=== PATIENT | female | born 1940 | race Caucasian/White ===

== ENCOUNTER 2025-07-12 06:58 | Inpatient (IN) | payer MEDICARE, BC ==
[~2025-07-12] VITALS: Ht 157.5 cm; Wt 93.2 kg
[2025-07-12] VITALS (20 sets, daily range): BP systolic 109–170; BP diastolic 35–79; PULSE 55–95; RESP 15–30; O2SAT 69–99
--- NOTE | 2025-07-12 07:26 | Physician Documentation ---
History of Present Illness ~ Chief Complaint: See Chief Complaint Stated Complaint: C3 Time Seen by MD: 07:13 Source: patient, EMS, EMS notes reviewed Mode of Arrival: EMS Exam Limitations: clinical condition HPI Chief Complaint: Shortness a breath, cardiac arrest Caveat: Unresponsive Independent Historians: Paramedics History of Present Illness: Patient is an 85-year-old woman with a history of atrial fibrillation woke up feeling short of breath and she activated her medical alert necklace. Paramedics found the patient cyanotic with difficulty breathing and a heart rate in the 20s.. They found her to be pulseless and MPA. They introduced an eye gel, a left tibia IO and gave her two rounds of epinephr ine and initiated CPR. After the two rounds of epi patient's heart rate improved and a pulse was obtained. Per paramedics family stated that she was DNR but they could not find the paperwork. Review of systems: All systems were reviewed and are negative except for what is indicated in the history of present illness. Past Medical History: Atrial fibrillation Past Surgical History: Known Social History: Lives at home with family, otherwise unknown Medications: Reviewed as documented Nursing Notes Allergies: Reviewed as documented in Nursing Notes Medication Reconciliation Allergies: Coded Allergies: No Allergy Information Available (Unverified , 07/12/25) Scheduled Amlodipine* (Norvasc*), 2 TAB PO DAILY, (Reported) Arformoterol Tartrate (Brovana), 1 VIAL NEB Q12H, (Reported) Aspirin (Aspirin), 1 TAB PO DAILY, (Reported) Budesonide Neb* (Pulmicort Neb*), 1 VIAL NEB Q12H, (Reported) Etodolac (Etodolac), 1 TAB PO Q12H, (Reported) Furosemide (Lasix), 1 TAB PO DAILY, (Reported) Levothyroxine Sodium (Levothyroxine), 1 TAB PO DAILY, (Reported) Metoprolol Succinate (Metoprolol Succinate), 1 TAB PO DAILY, (Reported) Potassium Chloride (Klor-Con), 1 PKT PO DAILY, (Reported) Ramipril* (Altace*), 2 CAP PO DAILY, (Reported) Simvastatin (Zocor), 1 TAB PO DAILY, (Reported) Scheduled PRN Alprazolam (Xanax), 1 TAB PO HS PRN for sleep, (Reported) Physical Exam Vital Signs: Temperature: 97.5, Source: Temporal, Heart Rate: 95, Respiratory Rate: 23, BP: 149/66, Pulse Oximetry: 97, Weight: 91.100 Procedures Intubation Intubation Time: 707 Intubation Method: orotracheal Endotracheal Tube Size: 7.5 Medications: other (Rocuronium 100 mg) ETT Confirmation: Ascultation, CO2 Detector, Direct Visualization, Condensation in ETT Breath Sounds After Intubation: equal Intubation Complications: no complications Post Intubation Xray: Yes Progress Results/Orders Results/Orders Orders - CORRIE HODGE MD Electrocardiogram (07/12/25 07:16) Chest,Single View (07/12/25 07:16) Saline Lock (07/12/25 07:16) Monitor (07/12/25 07:16) Oxygen (07/12/25 07:16) Propofol 1000mg/100ml Bottle (Diprivan I (07/12/25 07:20) Triglycerides (07/13/25 03:00) Triglycerides (07/20/25 03:00) Triglycerides (07/27/25 03:00) Triglycerides (08/03/25 03:00) Triglycerides (08/10/25 03:00) Ventilator Settings (07/12/25 07:21) Cult Sputum + Gram Stain (07/12/25 07:21) Abg (Arterial Blood Gas) (07/12/25 07:21) Ct Head (07/12/25 07:26) Culture Blood (07/12/25 07:36) Completed Orders - CORRIE HODGE MD Cbc/Diff (07/12/25 07:16) MG (07/12/25 07:16) Electrocardiogram (07/12/25 07:16) PBNP (07/12/25 07:16) Chest,Single View (07/12/25 07:16) Hs Troponin I W Calculations (07/12/25 07:16) Hs Troponin I W Calculations (07/12/25 09:16) Hs Troponin I W Calculations (07/12/25 10:16) CMP (07/12/25 07:16) Ct Head (07/12/25 07:26) Procalcitonin (07/12/25 07:36) Lacticsepsis (07/12/25 07:36) Phenylephrine 500 Mcg/5ml Inj. (Biorphen (07/12/25 07:39) Rocuronium Inj. (Zemuron Inj) (07/12/25 07:08) Sodium Bicarbonate 1meq/Ml Syr (Sodium B (07/12/25 07:35) Normal Saline 1000ml (0.9% Sodium Chlori (07/12/25 07:30) Ua W/Microscopic, Cult If Ind (07/12/25 08:50) Medications Received in ER Medications (Trade) Dose Ordered Sig/José Route PRN Reason Start Time Stop Time Status Last Admin Dose Admin Propofol 100 ml @ ud STK-MED ONCE IV 07/12/25 07:00 07/13/25 02:59 07/12/25 07:55 5 MLS/HR Propofol 100 ml @ 2.733 mls/ hr [id number] IV 07/12/25 07:20 07/12/25 09:27 2.733 MLS/HR (Zemuron inj) 100 mg ONCE ONCE IV 07/12/25 07:08 07/12/25 07:43 DC 07/12/25 07:55 100 MG (sodium bicarbonate 8.4% (1meq/ml) syringe) 50 ml ONCE ONCE IV 07/12/25 07:35 07/12/25 07:43 DC 07/12/25 07:55 50 ML Sodium Chloride 1,000 ml @ 2,000 mls/hr ONCE ONCE IV 07/12/25 07:30 07/12/25 07:59 DC 07/12/25 07:55 2,000 MLS/HR Vital Signs 07/12/25 07/12/25 07/12/25 07/12/25 07:00 07:00 07:05 07:10 Temp 97.5 Pulse 107 78 110 Resp 18 18 16 B/P (MAP) 149/66 149/66 (93) 130/88 (102) Pulse Ox 100 100 99 97 O2 Delivery Ambu Bag O2 Flow Rate 10.0 10.0 FiO2 N/A 07/12/25 07/12/25 07/12/25 07/12/25 07:14 07:15 07:20 07:25 Pulse 95 97 97 97 Resp 23 16 16 16 B/P (MAP) 119/101 (107) 134/118 (123) 134/118 (123) Pulse Ox 97 97 95 95 O2 Flow Rate 10.0 FiO2 80 80 80 07/12/25 07/12/25 07/12/25 07/12/25 07:30 07:35 07:40 07:45 Pulse 97 97 91 92 Resp 18 16 20 19 B/P (MAP) 64/39 (47) 61/39 (46) 69/34 (46) 90/46 (61) Pulse Ox 93 96 94 95 FiO2 80 80 80 80 07/12/25 07/12/25 07/12/25 07/12/25 07:50 07:55 07:55 08:00 Pulse 85 87 85 Resp 20 20 16 B/P (MAP) 87/46 (60) 94/40 (58) 130/88 99/45 (63) Pulse Ox 96 97 98 FiO2 80 80 80 07/12/25 07/12/25 08:05 08:10 Pulse 108 80 Resp 20 B/P (MAP) 102/39 (60) 102/42 (62) Pulse Ox 100 100 FiO2 80 80 Laboratory Tests Test 07/12/25 07:06 07/12/25 07:27 White Blood Count 16.1 H Red Blood Count 4.91 Hemoglobin 15.2 Hematocrit 46.5 H Mean Corpuscular Volume 94.8 Mean Corpuscular Hemoglobin 30.9 Mean Corpuscular Hemoglobin Concent 32.6 L Red Cell Distribution Width 14.4 Platelet Count 306 Mean Platelet Volume 9.5 Neutrophils (%) (Auto) 53.8 Lymphocytes (%) (Auto) 38.1 Monocytes (%) (Auto) 6.1 Eosinophils (%) (Auto) 1.5 Basophils (%) (Auto) 0.5 Neutrophils # (Auto) 8.7 H Lymphocytes # (Auto) 6.1 H Monocytes # (Auto) 1.0 H Eosinophils # (Auto) 0.2 Basophils # (Auto) 0.1 CBC Comment Sodium Level 147 H Potassium Level 4.4 Chloride Level 109 H Carbon Dioxide Level 22.2 L Anion Gap 16 Blood Urea Nitrogen 28 H Creatinine 1.54 H Estimated GFR/1.73 m2 32 BUN/Creatinine Ratio 18.2 Glucose Level 285 H Lactic Acid Level 8.7 *H Calcium Level 9.5 Magnesium Level 2.6 H Total Bilirubin 0.8 Aspartate Amino Transf (AST/SGOT) 80 H Alanine Aminotransferase (ALT/SGPT) 77 Alkaline Phosphatase 117 H Troponin I High Sensitivity 141 *H Pro-B-Type Natriuretic Peptide 3690 H Total Protein 6.6 Albumin 2.6 L Globulin 4.0 Albumin/Globulin Ratio 0.7 L Procalcitonin < 0.05 Chemistry Comments Blood Gas Specimen Type Arterial Blood Gas Puncture Site Rr O2 Saturation 94.1 Arterial Blood pH (Temp corrected) 7.218 *L Arterial Blood pCO2 (Temp correct) 42.9 Arterial Blood pO2 (Temp corrected) 82.2 L Arterial Blood PO2/FiO2 Ratio 0.99 Arterial Blood HCO3 17.0 L Arterial Blood Base Excess -10.2 L Arterial Blood Oxyhemoglobin 94.0 Arterial Blood Carboxyhemoglobin 0.0 L Arterial Blood Methemoglobin 0.1 Arterial Blood Deoxyhemoglobin 5.9 H Arjun Test Na Blood Gas Hemoglobin 15.5 Blood Gas Temperature 37.5 Blood Gas Set Respiration Rate 16 Blood Gas Modality Vent - prvc FiO2 80.0 Blood Gas Tidal Volume 400 Blood Gas PEEP 5 Blood Gas Critical Value Called To dr hodge Microbiology Date/Time Source Procedure Growth Status 07/12/25 08:18 Blood Hand Left Blood Culture - Preliminary NEGATIVE (LESS THAN 24 HOURS) Resulted Medical Decision Making Findings Differential diagnosis includes but is not limited to: Acute coronary syndrome, ventricular fibrillation, ventricular tachycardia, ischemic stroke, hemorrhagic stroke, electrolyte abnormalities, sepsis, congestive heart failure, pulmonary embolus EKG independent interpretation: Performed at 7:35 a.m.. Sinus rhythm. Heart rate 92, left axis deviation, left bundle-branch block Chest x-ray, single view, indication: Post intubation Independent interpretation: ETT above the gagandeep, mild cardiomegaly, infiltrates in both lungs left greater than right. NG tube present Head CT without IV contrast, indication: Unresponsive Impression: 1. Atrophy with periventricular leukoencephalopathy. 2. No acute intracranial pathology Laboratory data independent interpretation: CBC: Leukocytosis of 16.1 otherwise unremarkable CMP: Sodium elevated at 147, no anion gap, anion gap 16, bicarb mildly low at 22.2, BUN and creatinine elevated at 28 and 1.54, serum glucose elevated at 285, LFTs unremarkable, magnesium elevated at 2.6 Pro BNP: 3690 Lactic acid: 8.7 Procalcitonin normal,<0.05 1st troponin: 141 2nd troponin: 151 Urinalysis: RBC 3-10, WBC 5-10, nitrite negative, few squamous cells, no bacteria ABG: PH 7.225, pCO2 42, PO2 79.5, bicarb 17 this is on an FiO2 of 80% Emergency department course/medical decision-making: Patient is an 85-year-old woman who comes in after having woken up with shortness a breath and then was found to be in cardiac arrest with PDA. ROS was obtained in the field prior to arrival. Patient's airway was stabilized by removing the eye gel in intubating the patient with a glide scope using a 7.5 ETT. Patient was never hypoxic. Patient was mildly hypertensive on arrival. Patient is unresponsive. Pupils pupils are reactive. NG tube placed. Bright catheter placed. We will maintain hypothermia. Patient was placed on propofol drip for sedation. Are the patient became hypotensive. Blood cultures, lactic acid and procalcitonin added. Patient given 2 L of normal saline IV bolus. Patient is also given phenylephrine 50 mcg IV push. Patient's blood pressure has improved. Do not suspect sepsis. Patient's lactic acid is likely elevated secondary to her cardiac arrest. Patient's procalcitonin is normal. The patient does have leukocytosis. Pneumonia is a possibility however I suspect this is congestive heart failure on the chest x-ray and not pneumonia. Patient isn't given antibiotics. Consultation/communications: 8:00 a.m.: Case discussed with our clutch assembler Dr. Stack. He will evaluate the patient for admission. Departure Time of Disposition: 07:24 Disposition: 09 ADMITTED INPATIENT Admitted to Inpatient Unit: to clutch assembler Admission Level of Care: Critcal Care Impression: Primary Impression: Cardiac arrest Education Educated: Family Educated regarding: diagnosis, treatment Critical Care Note Total Time (mins): 60 Critical Care Note Critical conditions addressed for impending deterioration include: airway/respiratory, cardiovascular, PMO MANAGER Associated risk factors involving deterioration include: hypertension, hypotension, dysrythmia, metabolic changes, dehydration,acidosis, The very real possibility of a deterioration of this patient's condition required the highest level of my preparedness for sudden, emergent intervention. I provided critical care services, which included medication orders, frequent reevaluations of the patient's condition and response to treatment, ordering and reviewing test results, and discussing the case with necessary consultants. Critical care time was exclusive of necessary procedure time. The critical care time associated with the care of the patient was 60 minutes. Signature Scribe Signature: No scribe Attestation: No scribe AYESHA,CORRIE R MD Jul 12, 2025 07:26
[2025-07-12 07:27] LABS: MEAN PLATELET VOLUME 9.5 FL (7.4-10.4); RED CELL DISTRIBUTION WIDTH 14.4 % (11.5-14.5)
[2025-07-12 07:31] LABS: ABG BASE EXCESS -10.2 mmol/L (-2.0-3.0); ABG HCO3 17.0 mmol/L (21.0-28.0); ABG OXYGEN SATURATION 94.1 % (94.0-98.0); ABG PCO2 (T) 42.9 mmHg (32.0-45.0); ABG PH (T) 7.218 (7.350-7.450); ABG PO2 (T) 82.2 mmHg (83.0-108.0); FCOHb 0.0 % (0.5-1.5); FHHb 5.9 % (0.0-5.0); FIO2 80.0 mmHg/%; FMetHb 0.1 % (0.0-1.5); FO2Hb 94.0 % (94.0-98.0); MODE VENT - prvc; PATIENT TEMPERATURE 37.5; PEEP 5 cm H2O; RESPIRATORY RATE 16 b/min; TIDAL VOLUME 400 mL; TOTAL HEMOGLOBIN 15.5 G/dl (12.0-16.0)
[2025-07-12 07:35] LABS: CREATININE 1.54 MG/DL (0.40-0.90); TOTAL CARBON DIOXIDE 22.2 MMOL/L (24-32); eCRCL 21 ML/MIN; eGFR 32 ML/MIN
--- NOTE | 2025-07-12 07:38 | ELECTROCARDIOGRAPH REPORT ---
[facility] Test Date: 2025-07-12 Test Time: 07:35:08 Pat Name: BEHZAD MARSHALL Department: [facility]ER Patient ID: [id number] Room: Gender: F Crop Puller: : 1940 Requested By: CORRIE HODGE Order Number: [id number] Reading MD: Dr. Josh Alonzo Measurements Intervals [place] Rate: 92 P: -14 DC: 155 QRS: -55 QRSD: 152 T: 121 QT: 459 QTc: 568 Interpretive Statements Atrial-paced complexes Left bundle branch block Electronically Signed On 07-12-2025 8:22:[address] Josh Alonzo Please click the below link to view image of tracing.
[2025-07-12 07:42] LABS: PRO BRAIN NATRIURETIC PEPTIDE 3690 PG/ML (0-450)
--- NOTE | 2025-07-12 07:44 | RADIOLOGY REPORT ---
CHEST RADIOGRAPH Indication: CP Technique: Single frontal view of the chest was obtained. Comparison: None FINDINGS: Lines and Tubes: The endotracheal tube terminates 2.3 cm above the gagandeep. The tip of the enteric tube terminates at the level of the distal esophagus. Lungs: Diffuse bilateral interstitial and alveolar opacities. Pleura: No effusion. No pneumothorax. Cardiomediastinal contours: Cardiomegaly. Bones: No acute osseous abnormality. IMPRESSION: 1. The tip of the enteric tube terminates at the level of the distal esophagus. Recommend advancement. 2. Endotracheal tube terminates 2.3 cm above the gagandeep. 3. Diffuse bilateral interstitial and alveolar opacities which may reflect pneumonia. 4. Cardiomegaly.
[2025-07-12] MEDS: rocuronium 10mg/ml inj IV ONE (07:55)
[2025-07-12] MEDS: normal saline 1000ml 1,000 ML IV ONE (07:55)
[2025-07-12] MEDS: propofol 1000mg/100ml bottle 100 ML IV ONE (07:55)
[2025-07-12] MEDS: sodium bicarbonate (8.4%) 1 mEq/ml syringe IV ONE (07:55)
[2025-07-12] MEDS ORDERED: rocuronium 10mg/ml inj IV ONE (08:00)
[2025-07-12] MEDS ORDERED: sodium bicarbonate (8.4%) 1 mEq/ml syringe ONE (08:00)
[2025-07-12] MEDS ORDERED: ASPI-1265 PO (08:50)
[2025-07-12] MEDS ORDERED: ondansetron/PF 4mg/2ml inj IV PRN (08:50)
[2025-07-12] MEDS ORDERED: morphine 4 MG/ML inj SYRINge IV PRN (08:50)
[2025-07-12] MEDS ORDERED: magnesium hydroxide 30ml (MOM) UD suspension PO PRN (08:50)
[2025-07-12] MEDS ORDERED: ETOD-189 PO (08:50)
[2025-07-12] MEDS ORDERED: ALPR-624 PO (08:50)
[2025-07-12] MEDS ORDERED: RAMI5CAP71 PO (08:50)
[2025-07-12] MEDS ORDERED: METO-395 PO (08:56)
[2025-07-12] MEDS ORDERED: AMLO2.5T2 PO (08:56)
[2025-07-12] MEDS ORDERED: LEVO75CA6 PO (08:56)
[2025-07-12] MEDS ORDERED: FURO-149 PO (08:56)
[2025-07-12] MEDS ORDERED: POTA20PA40 PO (08:56)
[2025-07-12] MEDS ORDERED: SIMV-341 PO (08:56)
[2025-07-12] MEDS ORDERED: BUDE0.5A11 NEB (09:04)
[2025-07-12] MEDS ORDERED: ARFO15VI NEB (09:04)
[2025-07-12] MEDS: LidoCAINE 2% Topical Jelly 11mL syringe (UROJET) TOP ONE (09:15)
--- NOTE | 2025-07-12 09:20 | RADIOLOGY REPORT ---
CT brain without contrast CLINICAL INDICATION: aloc FINDINGS: The study was performed in a multidetector scanner. This study performed taking axial images from the skull base up to the vertex. Both brain and bone windows are photographed. Dose lowering techniques have been used including automated exposure control and adjustment of mA and/or KV according to patient size. Cortical sulcal markings are prominent. No intraparenchymal hemorrhage or edema. Faint low-density changes in the periventricular white matter. No hydrocephalus or midline shift. IMPRESSION: 1. Atrophy with periventricular leukoencephalopathy. 2. No acute intracranial pathology Computed Tomographic Radiation Dosimetry Report: Total CTDI vol = 65 mGy Total DLP = 1202 mGy-cm All CT scans at this medical facility are performed using dose modulation techniques as appropriate to a performed exam including the following: Automated exposure control was utilized; adjustment of the MA and/or KvP according to patient size; and use of iterative reconstruction technique.
[2025-07-12 09:27] LABS: LEUKOCYTE ESTERASE ,URINE NEGATIVE (Neg); NITRITES, URINE NEGATIVE (Neg); OCCULT BLOOD,URINE NEGATIVE (Neg)
[2025-07-12] MEDS: propofol 1000mg/100ml bottle 100 ML IV SCH (09:27)
[2025-07-12 09:32] LABS: UA COLLECTION TYPE FOLEY CATH
[2025-07-12] MEDS: ringers solution, lacted 1,000 ML IV ONE ×2 (09:32→09:33)
[2025-07-12 09:44] LABS: SQUAMOUS EPITHELIAL CELL,UR FEW /LPF (FEW)
[2025-07-12 09:45] LABS: AMORPHOUS URATES 2+; FINE GRANULAR CAST 0-3 /LPF (NEGATIVE)
[2025-07-12] MEDS ORDERED: fentaNYL/PF 50MCG/1 ML 2ML syringe IV PRN ×2 (11:25→12:25)
[2025-07-12] MEDS ORDERED: FENTANYL-0.9 % NACL/PF 100 ML IV SCH (11:25)
[2025-07-12] MEDS: PHENYLEPHRINE IV STA (11:53)
[2025-07-12] MEDS: normal saline 1000ml 1,000 ML IV SCH (11:53)
[2025-07-12] MEDS: FENTANYL-0.9 % NACL/PF 100 ML IV SCH (12:34)
[2025-07-12] MEDS: methylPREDNISolone sod succ/PF 40mg inj. IV SCH (13:50)
[2025-07-12] MEDS ORDERED: RAMI10CA78 PO (14:56)
[2025-07-12] MEDS ORDERED: SIMV-342 PO (14:56)
[2025-07-12] MEDS ORDERED: POTA-366 PO (14:56)
--- NOTE | 2025-07-12 20:25 | CARDIOLOGY REPORT ---
APPROVED REPORT EXAM: Limited 2D, Doppler, and color-flow Echocardiogram. Patient Location: 2016 A Blood Pressure: 142/51 mmHg Heart Rate: 62-68 bpm Rhythm: Atrial Fibrillation Indications Caridomegaly Post Cardiac Arrest Acute Respiratory Failure (intubated) Hx of Atrial Fibrillation Swing Grinder: None Previous echo: None 2D Dimensions RVDd 3.6 cm LA Diam 4.9 cm IVSd 1.3 (0.7-1.1cm) LVDd 5.0 cm PWd 1.3 (0.7-1.1cm) IVSs 1.6 (0.8-1.2cm) RA Minor 5.0 cm Aortic Root(2D) 3.0 cm LVOT Diameter 1.93 (1.8-2.4cm) CO 2.7 L/min M-Mode Dimensions IVSd 1.18 (0.7-1.1cm) LVDd 4.53 (4.0-5.6cm) PWd 1.14 (0.7-1.1cm) IVSs 1.23 cm MV EPSS 0.7 (<0.5cm) LVDs 3.55 (2.0-3.8cm) FS (%) 21 % PWs 1.52 cm ESV(Teich) 52.8 ml LVEF(%) 44 (>50%) Tricuspid Valve TR P. Velocity 226 cm/s RAP ESTIMATE 10 mmHg TR Peak Gr. 20 mmHg RVSP 30 mmHg LEFT VENTRICLE Normal LV size with mild to moderately reduced function. Mild concentric hypertrophy. Overall LVEF is 40-45%. RIGHT VENTRICLE Right ventricle is moderately dilated with reduced systolic function. Estimated PA systolic pressure is 30 mmHg. ATRIA Left atrium is moderately dilated. Right atrium appears to be severely dilated. AORTIC VALVE Aortic valve is grossly normal in structure. MITRAL VALVE Mitral valve is grossly normal in structure. TRICUSPID VALVE TV appears structurally normal with mild regurgitation. PULMONIC VALVE Pulmonic valve is not well visualized. GREAT VESSELS Aortic root appears to be normal in size. PERICARDIUM Small/Trivial pericardial effusion is loculated near right atrium. No evidence of hemodynamic compromise. Other Information Study Quality: Poor. TDS due to body habitus, respiratory status and inability to be positioned. No Apical window. Conclusion Normal LV size with mild to moderately reduced function. Mild concentric hypertrophy. Overall LVEF is 40-45%. Right ventricle is moderately dilated with reduced systolic function. Estimated PA systolic pressure is 30 mmHg. Left atrium is moderately dilated. Right atrium appears to be severely dilated. Aortic valve is grossly normal in structure. Mitral valve is grossly normal in structure. TV appears structurally normal with mild regurgitation. Small/Trivial pericardial effusion is loculated near right atrium. No evidence of hemodynamic compromise.
[2025-07-12] MEDS: famotidine/PF 10 mg/ml inj IV SCH (20:52)
[2025-07-13] VITALS (27 sets, daily range): BP systolic 123–160; BP diastolic 37–93; PULSE 53–95; RESP 13–32; TEMP 97.4–98.2; O2SAT 92–99
[2025-07-13 03:41] LABS: ABG BASE EXCESS -3.1 mmol/L (-2.0-3.0); ABG HCO3 19.8 mmol/L (21.0-28.0); ABG OXYGEN SATURATION 95.7 % (94.0-98.0); ABG PCO2 (T) 29.5 mmHg (32.0-45.0); ABG PH (T) 7.443 (7.350-7.450); ABG PO2 (T) 77.6 mmHg (83.0-108.0); ALLEN'S TEST Modified; FCOHb 0.8 % (0.5-1.5); FHHb 4.3 % (0.0-5.0); FIO2 50.0 mmHg/%; FMetHb 0.3 % (0.0-1.5); FO2Hb 94.6 % (94.0-98.0); MODE PRVC; PATIENT TEMPERATURE 36.8; PEEP 5 cm H2O; RESPIRATORY RATE 16 b/min; TIDAL VOLUME 400 mL; TOTAL HEMOGLOBIN 14.0 G/dl (12.0-16.0)
[2025-07-13 05:54] LABS: MEAN PLATELET VOLUME 10.0 FL (7.4-10.4); RED CELL DISTRIBUTION WIDTH 14.0 % (11.5-14.5)
--- NOTE | 2025-07-13 06:06 | PROGRESS NOTE ---
Progress Note Dictate Providers to CC ~ Progress Note: No new acute issues overnight Central Line/PICC still needed: N\A Bright Indications Met/Not Met: F/C Indications Met Antibiotic Ordered?: No Subjective Subjective Comfortable Objective Vitals Vital Signs Date Time Temp Pulse Resp B/P (MAP) Pulse Ox O2 Delivery O2 Flow Rate FiO2 07/13/25 06:01 61 16 149/46 (80) 98 Mechanical Ventilator 45 07/13/25 03:00 100.0 07/12/25 11:34 64.0 Lab Results: 07/12/25 0706 07/12/25 0706 Objective Heart: S1-2 reg Lungs: Coarse BS at bases Abdomen: Soft, non-tender, BS (+) Ext: No edema Neuro: Sedated Problem\Assessment\Plan Additional Plan 1-Acute Hypoxemic Resp Failure -Weaning trials 2-COPD -Taper down steroids 3-Cardiac Arrest -Supportive Juan José Warren CC time 35min Sepsis Screening Reassessment Date: Jul 13, 2025 EVERETT WARREN MD Jul 13, 2025 06:06
[2025-07-13 06:15] LABS: CREATININE 1.11 MG/DL (0.40-0.90); PHOSPHORUS 3.1 MG/DL (2.3-4.5); TOTAL CARBON DIOXIDE 24.2 MMOL/L (24-32); eCRCL 29 ML/MIN; eGFR 47 ML/MIN
--- NOTE | 2025-07-13 06:26 | HISTORY AND PHYSICAL ---
History of Present Illness End CC ~ Admission Diagnosis:.: Cardiac Arrest History of Present Illness Pt became unresponsive at home. EMS called and found pt pulseless. CPR performed *20min H/O COPD on Home O2. Pt c/o SOB prior to event Allergies: Coded Allergies: No Allergy Information Available (Unverified , 07/12/25) Home Medications Home Medications Active Reported Potassium Chloride 20 Meq Tablet.er 1 Tab PO DAILY Zocor (Simvastatin) 20 Mg Tablet 1 Tab PO DAILY Ramipril 10 Mg Capsule 1 Cap PO BID Brovana (Arformoterol Tartrate) 15 Mcg/2 Ml Vial.neb 1 Vial NEB Q12H 30 Days Pulmicort Neb* (Budesonide) 0.5 Mg/2 Ml Ampul.neb 1 Vial NEB Q12H 30 Days Levothyroxine (Levothyroxine Sodium) 75 Mcg Capsule 1 Tab PO DAILY 30 Days Norvasc* (Amlodipine Besylate) 2.5 Mg Tablet 2 Tab PO DAILY 30 Days Lasix (Furosemide) 40 Mg Tablet 1 Tab PO DAILY 30 Days Metoprolol Succinate 25 Mg Tab.sr.24h 1 Tab PO DAILY 30 Days Aspirin 81 Mg Tab.chew 1 Tab PO DAILY 30 Days Xanax (Alprazolam) 0.5 Mg Tablet 1 Tab PO HS Etodolac 500 Mg Tablet 1 Tab PO Q12H 30 Days Advance Care Planning Advanced Care plannin - 30 Minutes Review of Systems Unable to obtain complete ROS: intubated Physical Exam Last Vital Signs recorded: Temperature: 95.2, Source: Oral, Heart Rate: 61, Respiratory Rate: 16, BP: 149/46, Pulse Oximetry: 98, Weight: 87.700 General Appearance: obese EENT: PERRL/EOMI Neck: supple Respiratory: rhonchi Cardiovascular: bradycardia, irregularly irregular Peripheral Pulses: 1+ carotid (R), 1+ carotid (L), 1+ radial (R), 1+ radial (L), 1+ femoral (R), 1+ femoral (L), 1+ dorsalis pedis (R), 1+ dorsalis pedis (L), 1+ posterior tib (R), 1+ posterior tib (L), 1+ other Gastrointestinal: bowels sounds present Extremities: no edema Neurologic: unable to test Results Diagram Lab Result Diagram: 07/13/25 0427 07/13/25 0427 Assessment/Plan 1-S/P Cardiac Arrest -Supportive Tx -Check Echo -EEG? 2-Acute Hypoxemic Resp Failure -F/U ABG 3-H/O COPD -IV steroids + Bronchodilators Edward Warren CC time 35min Late entry. Pt examined on 07/12/25 EVERETT WARREN MD Jul 13, 2025 06:26
--- NOTE | 2025-07-13 07:38 | RADIOLOGY REPORT ---
CHEST RADIOGRAPH Indication: ett Technique: Single frontal view of the chest was obtained COMPARISON: DI CHEST,SINGLE VIEW on DOS: 07/12/25 FINDINGS: Lines and Tubes: Endotracheal tube and enteric catheter in satisfactory position. Lungs: Unchanged pulmonary vascular congestion. Pleura: Slightly increased small left pleural effusion. No pneumothorax. Cardiomediastinal contours: Unremarkable. Bones: Unremarkable. IMPRESSION: Slightly increased small left pleural effusion.
[2025-07-13] MEDS: enoxaparin 40mg/0.4ml syringe SUBCUT SCH (08:04)
--- NOTE | 2025-07-13 13:51 | CONSULTATION REPORT - RESIDENT ---
Consult Providers to CC Resident Creating Document: DARRICKKRUNAL MOMIN RES History of Present Illness Reason for Admit\Complaint: Cardiac arrest s/p return of spontaneous circulation History of Present Illness This is a 85-year-old female with known history of COPD, CHF, recent stroke, breast cancer s/p mastectomy, hypertension, spinal stenosis, hypothyroidism was brought to the ER by EMS after achieving ROSC. Patient was found to be in cardiac arrest at 6:00 a.m. at home and was resuscitated successfully after 20 minutes of CPR. Patient was also intubated and was transferred in the ambulance to the ER of [facility]. Patient was then transferred to ICU with mechanical ventilation. Patient was sedated with propofol and fentanyl. Initial EKG showed sinus rhythm with left axis deviation and left bundle-branch block. Initial laboratory workup was significant for a lactic acid of 8.7, [place] [address], BNP of 3690 and serially up trending troponin of 141, 151, 338. Initial physical exam was consistent with bilateral rhonchi. Chest x-ray showed bilateral interstitial opacities and small left pleural effusion suspicious for pneumonia versus CHF. Echocardiogram showed EF of 40-45% and pulmonary artery systolic pressure of [address] head showed atrophy with periventricular leukoencephalopathy but no acute changes. Patient was started on steroids methylprednisone 40 mg q.6 hours and duo nebs given the history of COPD by the derrickman helper. Subsequently patient improved with white count decreasing to 9000, lactic acid improved to 2.9. Patient endorses that she had slight chest pain when she woke up and later had a syncopal episode after which she does not remember anything. Her son the bedside stated that the EMS arrived in 20 minutes and started CPR and she was brought back after two injections of epinephrine and 20 minutes of CPR. Patient endorses difficulty breathing before the episode. She does have a history of COPD and uses 2 L of oxygen at home and nebulizer. She also states that she had a stroke six months ago and has residual right-sided weakness. Allergies: Coded Allergies: No Allergy Information Available (Unverified , 07/12/25) Home Medications Home Medications Active Reported Potassium Chloride 20 Meq Tablet.er 1 Tab PO DAILY Zocor (Simvastatin) 20 Mg Tablet 1 Tab PO DAILY Ramipril 10 Mg Capsule 1 Cap PO BID Brovana (Arformoterol Tartrate) 15 Mcg/2 Ml Vial.neb 1 Vial NEB Q12H 30 Days Pulmicort Neb* (Budesonide) 0.5 Mg/2 Ml Ampul.neb 1 Vial NEB Q12H 30 Days Levothyroxine (Levothyroxine Sodium) 75 Mcg Capsule 1 Tab PO DAILY 30 Days Norvasc* (Amlodipine Besylate) 2.5 Mg Tablet 2 Tab PO DAILY 30 Days Lasix (Furosemide) 40 Mg Tablet 1 Tab PO DAILY 30 Days Metoprolol Succinate 25 Mg Tab.sr.24h 1 Tab PO DAILY 30 Days Aspirin 81 Mg Tab.chew 1 Tab PO DAILY 30 Days Xanax (Alprazolam) 0.5 Mg Tablet 1 Tab PO HS Etodolac 500 Mg Tablet 1 Tab PO Q12H 30 Days Past Medical History Past Medical History COPD, CHF, recent stroke, breast cancer s/p mastectomy, hypertension, spinal stenosis, hypothyroidism Past Surgical History Surgical History Comment TKR, mastectomy, total shoulder replacement surgery, thyroidectomy Past Social History Social History Comment Smoked about four packs per day for 50 years with 200 pack year smoking history. Denies alcohol or drug use. Lives with son and [id number] at home. Uses walker and electric wheelchair to ambulate at home. ROS ROS Reviewed in full and negative except for the pertinent positives in HPI Exam Vitals: Vital Signs Date Time Temp Pulse Resp B/P (MAP) Pulse Ox O2 Delivery O2 Flow Rate FiO2 07/13/25 12:00 95 13 153/61 (91) 92 Nasal Cannula 4.0 07/13/25 09:21 40 07/13/25 03:00 100.0 General: General: Awake and Alert, no acute distress. Currently on 4 L of oxygen through nasal cannula HEENT: Conjunctiva pink, Sclera clear, Mucus Membranes moist Neck: Supple without masses and tenderness. Resp: Bilateral crepitations on auscultation Heart: Regular rate and rhythm, normal S1 and S2, S3 gallop heard, no murmur or gallop, muffled heart sounds. Abdomen: Soft and non tender no organomegaly. Normal bowel sounds x4 quadrant normoactive. No guarding or rigidity. Extremities: Normal ROM, no swelling, nontender. No cyanosis,clubbing or edema. DISPATCHER MAINTENANCE SERVICE: No gross motor or sensory abnormalities. Skin: Warm and Dry. Diagnostic Data Last Recorded Lab Results: 07/13/2542607/13/25426 Additional Plan Cardiac arrest s/p ROSC after 20 minutes Initial EKG showed sinus rhythm with left axis deviation and left bundle-branch block. Initial laboratory workup was significant for a lactic acid of 8.7, [place] [address], BNP of 3690 and serially up trending troponin of 141, 151, 338. Continue trending troponins Echocardiogram showed EF of 40-45% and pulmonary artery systolic pressure of 30 mmHg. Started on IV Lasix 40 mg daily. Strict I&O monitoring. Dr. Busch is on-call hostess party sales representative. Awaiting recommendations. CT head showed atrophy with periventricular leukoencephalopathy but no acute changes. Acute hypoxemic respiratory failure secondary to below Acute on chronic CHF exacerbation Sepsis secondary to bilateral pneumonia COPD Can not rule out pulmonary embolism Initial physical exam was consistent with bilateral rhonchi. Procalcitonin is elevated at 17.18, lactic acid improved from 8.7-2.6 Chest x-ray showed bilateral interstitial opacities and small left pleural effusion suspicious for pneumonia versus CHF. CT chest showed 1. Bilateral pulmonary opacities and interlobular septal thickening. Findings are suggestive of pulmonary edema. 2. Small bilateral pleural effusions. 3. Cardiomegaly. Coronary artery calcifications. Currently on antibiotics Zosyn, azithromycin, DuoNebs, Solu-Medrol 62.5 mg Q 8 hours and incentive spirometer. D-dimer is elevated at 11.24. CTA chest pending Metabolic acidosis with respiratory compensation Initial ABG showed pH of 7.2 and bicarb of 17, pCO2 42.9. Repeat ABG showed a pH of 7.4 with bicarb of 19.8 and respiratory compensation with pCO2 29.5 Hypertension Hyperlipidemia Hypothyroidism Med rec done. Continue home medication amlodipine, ramipril, metoprolol for hypertension Continue simvastatin, levothyroxine. Code Status: DNR DVT Prophylaxis: Lovenox Analgesia/Sedation: Lines/Tubes: PIV Gi Prophylaxis: Pepcid Nutrition: Heart healthy diet PT: Yes Prognosis: Guarded Disposition: Continue care in surgical floor. Pending cardiology consultation Krunal Momin MD Internal Medicine Resident PGY-2 Date of Service: Jul 13, 2025 Billing Provider: ALEXIS VILLARREAL MD,KRUNAL MOMIN, RES Jul 13, 2025 13:51
[2025-07-13] MEDS ORDERED: mag hydrox/Alum hydrox/simeth 30ml oral suspension PO PRN (13:55)
[2025-07-13] MEDS ORDERED: ipratropium/albuterol 3ml nebule NEB PRN (13:55)
[2025-07-13] MEDS ORDERED: magnesium hydroxide 30ml (MOM) UD suspension PO PRN (13:55)
[2025-07-13] MEDS ORDERED: HYDROcodone/acetaminophen 10/325mg tab PO PRN (13:55)
[2025-07-13] MEDS ORDERED: magnesium sulf-water 4G/100mL 100 ML IV PRN (13:55)
[2025-07-13] MEDS ORDERED: HYDROcodone/acetaminophen 5mg/325mg tablet PO PRN (13:55)
[2025-07-13] MEDS ORDERED: magnesium sulf-water 2g/50mL 50 ML IV PRN (13:55)
[2025-07-13] MEDS ORDERED: potassium Cl 40MEQ/1/2NS 520ml 520 ML IV PRN (13:55)
[2025-07-13] MEDS ORDERED: magnesium Cl slow-release 64mg tablet PO PRN (13:55)
[2025-07-13] MEDS: methylPREDNISolone sod succ/PF 40mg inj. IV SCH (14:22)
[2025-07-13 14:46] LABS: APTT 31 SECONDS (22-32); INR 1.1 INR
--- NOTE | 2025-07-13 16:09 | RADIOLOGY REPORT ---
Procedure: CT CT CHEST Clinical History: Shortness of breath Comparison: Chest radiograph performed on 07/13/2025 TECHNIQUE: Multidetector CT of the chest was performed from the lung apices to the upper abdomen without the use of intravenous contract. Coronal and sagittal multiplanar reformats were performed. RADIATION DOSE: CTDI volume is 18 mGy. Dose-length product is 597.95 mGy*cm The dose indicators for CT are the volume Computed Tomography (CT) Dose Index (CTDIvol) and the Dose Length Product (DLP), and are measured in units of mGy and mGy-cm, respectively. These indicators are not patient dose, but values generated from the CT scanner acquisition factors. The report includes radiation exposure data for exposures received during this examination. Radiation optimization: All CT scans at this facility use at least one of these dose optimization techniques: automated exposure control mA and/or kV adjustment per patient size (includes targeted exams where dose is matched to clinical indication) or iterative reconstruction. FINDINGS: Lower neck: There is a hypodense thyroid nodule measuring 1.4 cm. Lungs: There are bilateral opacities and bilateral interlobular septal thickening. No pulmonary nodules. Central ariways: Patent. Pleura: No pneumothorax. Small bilateral pleural effusions. Heart/Vascular Structures: The heart is enlarged. There are coronary artery calcifications. There is no pericardial effusion. The thoracic aorta is normal in caliber with atheroslerotic calcifications. Lymph Nodes: No lymphadenopathy. Musculoskeletal: T10 compression fracture noted. Chronic right 10th rib fracture. Soft tissues: Normal. Upper abdomen: Unremarkable. IMPRESSION: 1. Bilateral pulmonary opacities and interlobular septal thickening. Findings are suggestive of pulmonary edema. 2. Small bilateral pleural effusions. 3. Cardiomegaly. Coronary artery calcifications. 4. T10 compression fracture.
[2025-07-13] MEDS: ipratropium/albuterol 3ml nebule NEB SCH (16:25)
--- NOTE | 2025-07-13 18:35 | RADIOLOGY REPORT ---
CTA Chest with intravenous contrast INDICATION: Shortness of breath COMPARISON: CT CT CHEST on DOS: 07/13/25 TECHNIQUE: Multidetector spiral CTA of the chest was performed of the chest with intravenous contrast. PULMONARY ANGIOGRAPHY PROTOCOL was utilized using a bolus- tracking technique centered on the main pulmonary artery. Axial, coronal and sagittal multiplanar and MIP reformats were performed. Radiation Dose : 1. Chest: CTDI volume is 25 mGy. Dose-length product is 963 mGy*cm The dose indicators for CT are the volume Computed Tomography (CT) Dose Index (CTDIvol) and the Dose Length Product (DLP), and are measured in units of mGy and mGy-cm, respectively. These indicators are not patient dose, but values generated from the CT scanner acquisition factors. The report includes radiation exposure data for exposures received during this examination. Findings: Pulmonary artery: No pulmonary embolism Lower neck: Normal thyroid. Lungs: Bibasilar consolidations may reflect pneumonia or aspiration. Heart/Vascular Structures: Normal heart size. No pericardial effusion. Lymph Nodes: Mediastinal lymphadenopathy, likely reactive. Pleura: Small bilateral pleural effusions. Musculoskeletal: No acute osseous abnormality. Soft tissues: Normal. Upper abdomen: Limited portions of the upper abdomen are unremarkable. IMPRESSION: 1. No pulmonary embolism. 2. Bibasilar consolidations may reflect pneumonia or aspiration. 3. Small bilateral pleural effusions.
[2025-07-13] MEDS: albuterol 2.5 MG/3 ML nebule NEB SCH (18:57)
[2025-07-13] MEDS: budesonide 0.5mg/2ml UD nebule IH SCH (18:57)
[2025-07-13] MEDS: piperacillin/tazo 3.375gm/50ml 50 ML IV SCH (19:03)
[2025-07-13] MEDS: morphine 4 MG/ML inj SYRINge IV PRN (19:59)
[2025-07-13] MEDS: K and/or MAG REPLACEMENT MC SCH (20:00)
[2025-07-13] MEDS: metoprolol succinate 25mg (24-HOUR) SR. Tablet PO SCH (20:13)
[2025-07-13] MEDS: docusate sod 100mg capsule PO SCH (23:08)
[2025-07-13] MEDS: ETODOLAC 500 MG PO SCH (23:08)
[2025-07-14] VITALS (24 sets, daily range): BP systolic 127–186; BP diastolic 49–68; PULSE 64–101; RESP 14–36; TEMP 97.1–97.8; O2SAT 55–94
[2025-07-14] MEDS: methylPREDNISolone sod succ/PF 40mg inj. IV SCH (03:35)
[2025-07-14 06:09] LABS: MEAN PLATELET VOLUME 9.3 FL (7.4-10.4); RED CELL DISTRIBUTION WIDTH 14.5 % (11.5-14.5)
[2025-07-14 06:23] LABS: CHOL/HDL RATIO 4.0 (0.00-4.99); CREATININE 1.47 MG/DL (0.40-0.90); LDL CHOLESTEROL 98 MG/DL (50-100); PHOSPHORUS 3.3 MG/DL (2.3-4.5); TOTAL CARBON DIOXIDE 29.4 MMOL/L (24-32); eCRCL 22 ML/MIN; eGFR 34 ML/MIN
--- NOTE | 2025-07-14 06:48 | ELECTROCARDIOGRAPH REPORT ---
[facility] Test Date: 2025-07-14 Test Time: 06:43:10 Pat Name: BEHZAD MARSHALL [facility]: [id number] Room: [place] [address] A Gender: F Hops Farmworker: JAQUELINE : 1940 Requested By: NIELS LAL Order Number: [id number] Reading MD: Dr. Max Guillen Measurements Intervals [place] Rate: 65 P: 81 OR: 258 QRS: -34 QRSD: 170 T: 147 QT: 512 QTc: 532 Interpretive Statements Sinus rhythm with 1st degree AV block Left axis deviation Left bundle branch block Electronically Signed On 07-14-2025 7:11:[address] Max Guillen Please click the below link to view image of tracing.
[2025-07-14] MEDS: levoTHYROXINE 75mcg tablet PO SCH (08:27)
[2025-07-14] MEDS: famotidine/PF 10 mg/ml inj IV SCH (09:19)
[2025-07-14] MEDS: potassium Cl 20 mEq SR tablet PO PRN (10:06)
--- NOTE | 2025-07-14 10:38 | ELECTROCARDIOGRAPH REPORT ---
[facility] Test Date: 2025-07-14 Test Time: 10:36:45 Pat Name: BEHZAD MARSHALL Department: [facility] 3N Patient ID: [facility]-[id number] Room: [place] [address] Gender: F Materials And Corrosion Engineer: : 1940 Requested By: KRUNAL HOLLINGSWORTH Order Number: [id number] Reading MD: Dr. Max Guillen Measurements Intervals [place] Rate: 72 P: 62 NC: 277 QRS: -43 QRSD: 169 T: 148 QT: 480 QTc: 526 Interpretive Statements Sinus rhythm Multiple premature complexes, vent & supraven Prolonged NC interval Left bundle branch block Electronically Signed On 07-15-2025 7:00:[address] Max Guillen Please click the below link to view image of tracing.
[2025-07-14] MEDS: HEPARIN DRIP-CARDIAC**PHARMACIST-TO-DOSE IV ONE (11:00)
[2025-07-14] MEDS ORDERED: heparin 10,000 units/1 ML INJ IV ONE (11:05)
[2025-07-14] MEDS ORDERED: heparin 10,000 units/1 ML INJ IV PRN (11:05)
[2025-07-14 11:39] LABS: MEAN PLATELET VOLUME 9.1 FL (7.4-10.4); RED CELL DISTRIBUTION WIDTH 14.3 % (11.5-14.5)
[2025-07-14 11:51] LABS: APTT 29 SECONDS (22-32); INR 1.1 INR
[2025-07-14] MEDS: heparin 25,000 UNIT/250ml bag 250 ML IV PRN (12:13)
[2025-07-14] MEDS: MESSAGE TO NURSING IV ONE ×2 (12:14→21:05)
--- NOTE | 2025-07-14 15:18 | PROGRESS NOTE- Residence ---
Progress Note - Resident Providers to CC Resident Creating Document: KRUNAL HOLLINGSWORTH RES ~ Antibiotic Timeout Antibiotic Ordered?: Yes Subjective Patient was seen and examined at the bedside. Patient had two episodes of chest pain one episode early this morning in another episode in the late morning. EKG was done both the times showed ST changes in lead one and aVL, V5 V6. Chest pain resolved with nitro. Started on heparin drip. Consulted on-call web merchant Dr. Brooke Guillen. Awaiting recommendations. Objective Vital Signs Date Time Temp Pulse Resp B/P (MAP) Pulse Ox O2 Delivery O2 Flow Rate FiO2 07/14/25 13:21 16 Nasal Cannula 6.0 44 07/14/25 11:08 68 07/14/25 11:02 90 07/13/25 23:15 97.4 127/55 (79) Result Diagram: 07/14/25 1131 07/14/25 0516 General: Awake and Alert, no acute distress. Currently on 4 L of oxygen through nasal cannula HEENT: Conjunctiva pink, Sclera clear, Mucus Membranes moist Neck: Supple without masses and tenderness. Resp: Bilateral crepitations on auscultation Heart: Regular rate and rhythm, normal S1 and S2, S3 gallop heard, no murmur or gallop, muffled heart sounds. Abdomen: Soft and non tender no organomegaly. Normal bowel sounds x4 quadrant normoactive. No guarding or rigidity. Extremities: Normal ROM, no swelling, nontender. No cyanosis,clubbing or edema. BREAKER MACHINE TENDER: No gross motor or sensory abnormalities. Skin: Warm and Dry. Coagulation Studies Laboratory Tests Test 07/13/25 14:11 07/14/25 11:31 D-Dimer 11.24 MG/L FEU (0-0.50) H D-Dimer Comment Prothrombin Time 11.4 SECONDS (9.0-12.0) INR International Normalized Ratio 1.1 INR Activated Partial Thromboplast Time 29 SECONDS (22-32) Coagulation Comments Assessment Assessment This is a 85-year-old female with known history of COPD, CHF, recent stroke, breast cancer s/p mastectomy, hypertension, spinal stenosis, hypothyroidism was brought to the ER by EMS after achieving ROSC. Patient was found to be in cardiac arrest at 6:00 a.m. at home and was resuscitated successfully after 20 minutes of CPR. Patient was also intubated and was transferred in the ambulance to the ER of [facility]. Patient was then transferred to ICU with mechanical ventilation. Patient was sedated with propofol and fentanyl. Initial EKG showed sinus rhythm with left axis deviation and left bundle-branch block. Initial laboratory workup was significant for a lactic acid of 8.7, [place] [address], BNP of 3690 and serially up trending troponin of 141, 151, 338. Initial physical exam was consistent with bilateral rhonchi. Chest x-ray showed bilateral interstitial opacities and small left pleural effusion suspicious for pneumonia versus CHF. Echocardiogram showed EF of 40-45% and pulmonary artery systolic pressure of [address] head showed atrophy with periventricular leukoencephalopathy but no acute changes. Patient was started on steroids methylprednisone 40 mg q.6 hours and duo nebs given the history of COPD by the epidemiology intern. Subsequently patient improved with white count decreasing to 9000, lactic acid improved to 2.9. Patient endorses that she had slight chest pain when she woke up and later had a syncopal episode after which she does not remember anything. Her son the bedside stated that the EMS arrived in 20 minutes and started CPR and she was brought back after two injections of epinephrine and 20 minutes of CPR. Patient endorses difficulty breathing before the episode. She does have a history of COPD and uses 2 L of oxygen at home and nebulizer. She also states that she had a stroke six months ago and has residual right-sided weakness. Plan Plan Cardiac arrest s/p ROSC after 20 minutes NSTEMI Initial EKG showed sinus rhythm with left axis deviation and left bundle-branch block. Initial laboratory workup was significant for a lactic acid of 8.7, [place] [address], BNP of 3690 and serially up trending troponin of 141, 151, 338. Continue trending troponins Echocardiogram showed EF of 40-45% and pulmonary artery systolic pressure of 30 mmHg. Started on IV Lasix 40 mg daily. Strict I&O monitoring. CT head showed atrophy with periventricular leukoencephalopathy but no acute changes. 07/14/2025: Patient had two episodes of chest pain and chest x-ray showing ST depressions in lateral leads. Chest pain resolved with nitro. Started on heparin drip. Consulted on-call web merchant. Dr. Brooke Guillen is on-call web merchant. Awaiting recommendations. Acute hypoxemic respiratory failure secondary to below Acute on chronic CHF exacerbation Sepsis secondary to bilateral pneumonia COPD Pulmonary embolism, ruled out Initial physical exam was consistent with bilateral rhonchi. Procalcitonin is elevated at 17.18, lactic acid improved from 8.7-2.6 Chest x-ray showed bilateral interstitial opacities and small left pleural effusion suspicious for pneumonia versus CHF. CT chest showed 1. Bilateral pulmonary opacities and interlobular septal thickening. Findings are suggestive of pulmonary edema. 2. Small bilateral pleural effusions. 3. Cardiomegaly. Coronary artery calcifications. Currently on antibiotics Zosyn, azithromycin, DuoNebs, Solu-Medrol 62.5 mg Q 8 hours and incentive spirometer. D-dimer is elevated at 11.24. CTA ruled out pulmonary embolism CTA chest shows: Bibasilar consolidations may reflect pneumonia or aspiration. Small bilateral pleural effusions. Metabolic acidosis with respiratory compensation secondary to sepsis Initial ABG showed pH of 7.2 and bicarb of 17, pCO2 42.9. Repeat ABG showed a pH of 7.4 with bicarb of 19.8 and respiratory compensation with pCO2 29.5 Hypertension Hyperlipidemia Hypothyroidism Med rec done. Continue home medication amlodipine, ramipril, metoprolol for hypertension Continue simvastatin, levothyroxine. Code Status: DNR DVT Prophylaxis: Lovenox Analgesia/Sedation: Lines/Tubes: PIV Gi Prophylaxis: Pepcid Nutrition: Heart healthy diet PT: Yes Prognosis: Guarded Disposition: Transfer to PCU. Pending cardiology consultation Krunal Momin MD Internal Medicine Resident PGY-2 Date of Service: Jul 14, 2025 Billing Provider: ALEXIS VILLARREAL MD,KRUNAL MOMIN, RES Jul 14, 2025 15:18
--- NOTE | 2025-07-14 17:30 | CONSULTATION REPORT ---
History of Present Illness Providers to CC CC: DOMONIQUE GUILLEN MD ~ Reason for Admit\\Admit Dx: Cardiology consultation History of Present Illness Patient presented via EMS after cardiac arrest. Patient states that prior to arrival on July 12, 2025 she was feeling short of breath and not feeling well. She is unsure how long she did not feel well. She pressed her life Alert button she was sitting in a chair. States she may have blacked out. EMS found her with heart rate in the 20s and cyanotic. She had a pulseless electrical activity arrest status post two rounds of epinephrine and CPR. No shockable rhythm was ever documented. She was intubated in the emergency department after stabilization by EMS. Extubated yesterday and transferred out of the intensive care unit. She is currently awake, alert. Forgetful. Complaining of some continued shortness for breath. No clear chest pain or pressure. Patient is somewhat of a poor historian. She states she is upset that she had rheumatic fever as a child that was told that she did not have any rheumatic fever. Otherwise, is unable to tell me about her history of CVA or cardiac history. Allergies: Coded Allergies: naproxen (Unverified Allergy, Unknown, itchy, 07/14/25) prochlorperazine (Unverified Allergy, Unknown, "my throat closes up", 07/14/25) Home Medications Home Medications Active Reported Potassium Chloride 20 Meq Tablet.er 1 Tab PO DAILY Zocor (Simvastatin) 20 Mg Tablet 1 Tab PO DAILY Ramipril 10 Mg Capsule 1 Cap PO BID Brovana (Arformoterol Tartrate) 15 Mcg/2 Ml Vial.neb 1 Vial NEB Q12H 30 Days Pulmicort Neb* (Budesonide) 0.5 Mg/2 Ml Ampul.neb 1 Vial NEB Q12H 30 Days Levothyroxine (Levothyroxine Sodium) 75 Mcg Capsule 1 Tab PO DAILY 30 Days Norvasc* (Amlodipine Besylate) 2.5 Mg Tablet 2 Tab PO DAILY 30 Days Lasix (Furosemide) 40 Mg Tablet 1 Tab PO DAILY 30 Days Metoprolol Succinate 25 Mg Tab.sr.24h 1 Tab PO DAILY 30 Days Aspirin 81 Mg Tab.chew 1 Tab PO DAILY 30 Days Xanax (Alprazolam) 0.5 Mg Tablet 1 Tab PO HS Etodolac 500 Mg Tablet 1 Tab PO Q12H 30 Days Past Medical History Medical History Comment Patient has history of rheumatic fever as a child Hypertension Hyperlipidemia Hypothyroidism COPD CHF diagnosed in 2020 Breast cancer Spinal stenosis CVA prior to 2020 Left bundle branch block Past Surgical History Surgical History Comment Mastectomy Physical Exam Last Vital Signs Recorded: RN Vital Signs have been reviewed: Yes, Temperature: 97.6, Source: Oral, Heart Rate: 64, Respiratory Rate: 16, BP: 127/49, Pulse Oximetry: 90, Weight: 91.300 Physical Exam General: Awake, alert, oriented. No apparent distress Neck: Supple. Normal range of motion. No JVD Respiratory: Meckel's to auscultation in the bases. Chest: Normal shape and size. No accessory muscle use. Cardiovascular: Regular rate and rhythm. S1-S2. No murmur, gallop, rub. Extremities: No lower extremity edema, cyanosis or clubbing. Neurologic: Alert and oriented x4. Nonfocal Psychiatric: Normal mood and affect. Skin: Normal color. Warm and dry. Peripheral Pulses: 1+ carotid (R), 1+ carotid (L), 1+ radial (R), 1+ radial (L), 1+ femoral (R), 1+ femoral (L), 1+ dorsalis pedis (R), 1+ dorsalis pedis (L), 1+ posterior tib (R), 1+ posterior tib (L), 1+ other Review of Systems All Other Systems at this time: Reviewed and Negative ROS Review of systems negative except documented in HPI. Unable to obtain complete ROS: intubated Results Echocardiogram Echocardiogram Conclusion Normal LV size with mild to moderately reduced function. Mild concentric hypertrophy. Overall LVEF is 40-45%. Right ventricle is moderately dilated with reduced systolic function. Estimated PA systolic pressure is 30 mmHg. Left atrium is moderately dilated. Right atrium appears to be severely dilated. Aortic valve is grossly normal in structure. Mitral valve is grossly normal in structure. TV appears structurally normal with mild regurgitation. Small/Trivial pericardial effusion is loculated near right atrium. No evidence of hemodynamic compromise. Dictated by:HAWA ROWE MD Dictation date and time:07/12/252023 Diagram Lab Result Diagram: 07/14/25 1131 07/14/25 0516 Assessment/Plan Additional Plan Patient presented secondary to cardiac arrest. The following is her problem list: Cardiac arrest Presenting rhythm was pulseless electrical activity No known shockable rhythm --monitoring on telemetry Elevated troponins In the presence of hypoxic respiratory failure on 6 L nasal cannula No chest pain or pressure. EKG with left bundle branch block which is chronic for her and has been known since 2020 at least. --we can continue heparin for 48 hours. --medical management. Heart failure with reduced ejection fraction, acute likely acute on chronic TTE demonstrates an LVEF of 40-45%. Moderate RV dilation with reduced function. Severe right atrial dilation. --CTA negative for pulmonary embolism --recommend continued diuresis --continue some metoprolol succinate 25 mg daily --continue lisinopril 20 mg daily--consider transitioning off of lisinopril and onto Entresto --recommend stopping amlodipine. Pneumonia Hospitalist managing. On Zosyn. Acute kidney injury versus chronic kidney disease --monitoring Other comorbidities History of breast cancer COPD History of spinal stenosis Hypothyroidism History of CVA Left bundle branch block Case discussed with Dr. Bettie Guillen who is in agreement with this plan. Supervising MD Supervising Physician: CADE Hedrick NP Jul 14, 2025 17:30
[2025-07-14] MEDS: albuterol 2.5 MG/3 ML nebule NEB PRN (20:44)
--- NOTE | 2025-07-14 21:22 | ELECTROCARDIOGRAPH REPORT ---
[facility] Test Date: 2025-07-14 Test Time: 21:21:29 Pat Name: BEHZAD MARSHALL Department: [facility] 3S Patient ID: [id number] Room: [place] [address] A Gender: F Heel Wheeler: : 1940 Requested By: CYNTHIA PUENTE Order Number: [id number] Reading MD: Dr. Max Guillen Measurements Intervals [place] Rate: 99 P: 0 OR: 0 QRS: -35 QRSD: 152 T: 141 QT: 439 QTc: 564 Interpretive Statements Atrial fibrillation Paired ventricular premature complexes Left bundle branch block Electronically Signed On 07-15-2025 7:01:[address] Max Guillen Please click the below link to view image of tracing.
[2025-07-14] MEDS: furosemide 10 MG/1 ML 10ml inj IV ONE (21:24)
[2025-07-14 21:26] LABS: ABG BASE EXCESS -4.4 mmol/L (-2.0-3.0); ABG HCO3 24.0 mmol/L (21.0-28.0); ABG OXYGEN SATURATION 89.3 % (94.0-98.0); ABG PCO2 (T) 56.8 mmHg (32.0-45.0); ABG PH (T) 7.242 (7.350-7.450); ABG PO2 (T) 61.8 mmHg (83.0-108.0); ALLEN'S TEST Modified; FCOHb 0.8 % (0.5-1.5); FHHb 10.6 % (0.0-5.0); FIO2 60.0 mmHg/%; FLOW 14 L/min; FMetHb 0.0 % (0.0-1.5); FO2Hb 88.6 % (94.0-98.0); MODE MASK - SIMPLE; PATIENT TEMPERATURE 36.7; TOTAL HEMOGLOBIN 15.3 G/dl (12.0-16.0)
--- NOTE | 2025-07-14 21:27 | RADIOLOGY REPORT ---
EXAM: DI CHEST,SINGLE VIEW HISTORY: short of breath TECHNIQUE: 1 view of the chest COMPARISON: CT CT CHEST on DOS: 07/13/25 FINDINGS/IMPRESSION: LUNGS: Low lung volumes, which cause crowding of the bronchovascular markings. Interstitial thickening with alveolar opacity in the left lung base with increased interstitial markings in the [id number]-right mid to lower lung zones. Correlate for volume overload and/or superimposed pneumonia MEDIASTINUM: Unremarkable. BONES: No acute osseous abnormality. OTHER: None.
[2025-07-14] MEDS: sacubitril/valsartan 24mg-26mg tablet PO SCH (21:39)
[2025-07-14 22:03] LABS: CREATININE 1.94 MG/DL (0.40-0.90); TOTAL CARBON DIOXIDE 26.5 MMOL/L (24-32); eCRCL 17 ML/MIN; eGFR 25 ML/MIN
[2025-07-14 23:20] LABS: ABG BASE EXCESS -1.0 mmol/L (-2.0-3.0); ABG HCO3 24.5 mmol/L (21.0-28.0); ABG OXYGEN SATURATION 90.6 % (94.0-98.0); ABG PCO2 (T) 41.4 mmHg (32.0-45.0); ABG PH (T) 7.384 (7.350-7.450); ABG PO2 (T) 54.6 mmHg (83.0-108.0); ALLEN'S TEST Modified; FCOHb 0.6 % (0.5-1.5); FHHb 9.3 % (0.0-5.0); FIO2 50.0 mmHg/%; FMetHb 0.3 % (0.0-1.5); FO2Hb 89.8 % (94.0-98.0); MODE MASK - BIPAP; PATIENT TEMPERATURE 35.6; TOTAL HEMOGLOBIN 14.1 G/dl (12.0-16.0)
[2025-07-15] VITALS (28 sets, daily range): BP systolic 115–148; BP diastolic 45–80; PULSE 58–76; RESP 12–29; TEMP 97–98.3; O2SAT 91–97
[2025-07-15] MEDS: potassium Cl 20 mEq SR tablet PO STA (00:54)
[2025-07-15 02:39] LABS: MEAN PLATELET VOLUME 9.2 FL (7.4-10.4); RED CELL DISTRIBUTION WIDTH 14.1 % (11.5-14.5)
[2025-07-15 02:43] LABS: CREATININE 1.76 MG/DL (0.40-0.90); PHOSPHORUS 3.3 MG/DL (2.3-4.5); TOTAL CARBON DIOXIDE 26.7 MMOL/L (24-32); eCRCL 18 ML/MIN; eGFR 27 ML/MIN
[2025-07-15] MEDS: heparin 10,000 units/1 ML INJ IV PRN (03:37)
[2025-07-15] MEDS: MESSAGE TO NURSING IV ONE ×5 (04:11→22:49)
[2025-07-15] MEDS: heparin 25,000 UNIT/250ml bag 250 ML IV PRN (05:18)
[2025-07-15] MEDS: EMPAGLIFLOZIN 10 MG TABLET PO SCH (07:22)
[2025-07-15] MEDS ORDERED: magnesium hydroxide 30ml (MOM) UD suspension PO PRN (11:00)
[2025-07-15 11:44] LABS: ABG BASE EXCESS -0.4 mmol/L (-2.0-3.0); ABG HCO3 23.0 mmol/L (21.0-28.0); ABG OXYGEN SATURATION 94.2 % (94.0-98.0); ABG PCO2 (T) 33.3 mmHg (32.0-45.0); ABG PH (T) 7.454 (7.350-7.450); ABG PO2 (T) 65.3 mmHg (83.0-108.0); ALLEN'S TEST POSITIVE; FCOHb 0.7 % (0.5-1.5); FHHb 5.7 % (0.0-5.0); FIO2 50.0 mmHg/%; FMetHb 0.3 % (0.0-1.5); FO2Hb 93.3 % (94.0-98.0); MODE MASK - BIPAP; PATIENT TEMPERATURE 36.4; RESPIRATORY RATE 12 b/min; TOTAL HEMOGLOBIN 14.4 G/dl (12.0-16.0)
--- NOTE | 2025-07-15 12:09 | PROGRESS NOTE ---
Progress Note Cardiology Providers to CC ~ Subjective Subjective Patient has not on BiPAP. Feeling anxious. Daughter at bedside. All questions answered. Objective Result Diagram: 07/15/2521707/15/25217 Objective General: Awake, alert, oriented. No apparent distress Neck: Supple. Normal range of motion. No JVD Respiratory: Meckel's to auscultation in the bases. Chest: Normal shape and size. No accessory muscle use. Cardiovascular: Regular rate and rhythm. S1-S2. No murmur, gallop, rub. Extremities: Ankle edema is noted. No cyanosis or clubbing. Neurologic: Alert and oriented x4. Nonfocal Psychiatric: Normal mood and affect. Skin: Normal color. Warm and dry. Coagulation Studies Laboratory Tests Test 07/13/25 14:11 07/14/25 11:31 07/15/25 09:54 D-Dimer 11.24 MG/L FEU (0-0.50) H D-Dimer Comment Prothrombin Time 11.4 SECONDS (9.0-12.0) INR International Normalized Ratio 1.1 INR Activated Partial Thromboplast Time 29 SECONDS (22-32) APTT (Heparin Protocol) 112 SECONDS (45-60) *H Coagulation Comments Problem\Assessment\Plan Additional Plan Patient presented secondary to cardiac arrest. The following is her problem list: Cardiac arrest Presenting rhythm was pulseless electrical activity No known shockable rhythm --monitoring on telemetry --patient and daughter not interested in further procedures. Elevated troponins In the presence of hypoxic respiratory No chest pain or pressure. EKG with left bundle branch block which is chronic for her and has been known since 2020 at least. --we can continue heparin for 48 hours. --medical management. Aspirin, statin, beta-blockers. Heart failure with reduced ejection fraction, acute likely acute on chronic TTE demonstrates an LVEF of 40-45%. Moderate RV dilation with reduced function. Severe right atrial dilation. --CTA negative for pulmonary embolism --recommend continued diuresis --continue some metoprolol succinate 25 mg daily --continue lisinopril 20 mg daily--consider transitioning off of lisinopril and onto Entresto --recommend stopping amlodipine. --continue diuresis to keep euvolemic. Pneumonia Hypoxic respiratory failure multifactorial with pneumonia and CHF. Hospitalist managing. On Zosyn. Acute kidney injury versus chronic kidney disease --monitoring Other comorbidities History of breast cancer COPD History of spinal stenosis Hypothyroidism History of CVA Left bundle branch block Case discussed with Dr. Bettie Guillen who is in agreement with this plan. Supervising Physician: CADE Hedrick NP Jul 15, 2025 12:09
[2025-07-15] MEDS ORDERED: famotidine/PF 10 mg/ml inj IV SCH (13:24)
--- NOTE | 2025-07-15 18:59 | PROGRESS NOTE- Residence ---
Progress Note - Resident Providers to CC Resident Creating Document: KRUNAL HOLLINGSWORTH RES ~ Antibiotic Timeout Antibiotic Ordered?: Yes Subjective Patient was seen and examined at the bedside. Patient had an episode of acute respiratory distress last night and was started on BiPAP. ABG showed a normal CO2 and O2. BiPAP has been weaned off gradually it was the end of the day and is started on 6 L of oxygen through nasal cannula. Increased Lasix dose to 40 mg b.i.d. manager integrated plan is to transfer the patient to [facility] tomorrow. We will reassess tomorrow. Objective Vital Signs Date Time Temp Pulse Resp B/P (MAP) Pulse Ox O2 Delivery O2 Flow Rate FiO2 07/15/25 16:16 60 18 Nasal Cannula 6.0 07/15/25 16:07 93 44 07/15/25 15:00 98.3 115/80 (92) Result Diagram: 07/15/2521707/15/25217 General: Awake and Alert, no acute distress. Currently on 4 L of oxygen through nasal cannula HEENT: Conjunctiva pink, Sclera clear, Mucus Membranes moist Neck: Supple without masses and tenderness. Resp: Bilateral crepitations on auscultation Heart: Regular rate and rhythm, normal S1 and S2, S3 gallop heard, no murmur or gallop, muffled heart sounds. Abdomen: Soft and non tender no organomegaly. Normal bowel sounds x4 quadrant normoactive. No guarding or rigidity. Extremities: Normal ROM, no swelling, nontender. No cyanosis,clubbing or edema. HOTEL FRONT DESK CLERK: No gross motor or sensory abnormalities. Skin: Warm and Dry. Coagulation Studies Laboratory Tests Test 07/13/25 14:11 07/14/25 11:31 07/15/25 15:00 D-Dimer 11.24 MG/L FEU (0-0.50) H D-Dimer Comment Prothrombin Time 11.4 SECONDS (9.0-12.0) INR International Normalized Ratio 1.1 INR Activated Partial Thromboplast Time 29 SECONDS (22-32) APTT (Heparin Protocol) 53 SECONDS (45-60) Coagulation Comments Assessment Assessment This is a 85-year-old female with known history of COPD, CHF, recent stroke, breast cancer s/p mastectomy, hypertension, spinal stenosis, hypothyroidism was brought to the ER by EMS after achieving ROSC. Patient was found to be in cardiac arrest at 6:00 a.m. at home and was resuscitated successfully after 20 minutes of CPR. Patient was also intubated and was transferred in the ambulance to the ER of [facility]. Patient was then transferred to ICU with mechanical ventilation. Patient was sedated with propofol and fentanyl. Initial EKG showed sinus rhythm with left axis deviation and left bundle-branch block. Initial laboratory workup was significant for a lactic acid of 8.7[place] [address], BNP of 3690 and serially up trending troponin of 141, 151, 338. Initial physical exam was consistent with bilateral rhonchi. Chest x-ray showed bilateral interstitial opacities and small left pleural effusion suspicious for pneumonia versus CHF. Echocardiogram showed EF of 40-45% and pulmonary artery systolic pressure of [address] head showed atrophy with periventricular leukoencephalopathy but no acute changes. Patient was started on steroids methylprednisone 40 mg q.6 hours and duo nebs given the history of COPD by the instrument maker. Subsequently patient improved with white count decreasing to 9000, lactic acid improved to 2.9. Patient endorses that she had slight chest pain when she woke up and later had a syncopal episode after which she does not remember anything. Her son the bedside stated that the EMS arrived in 20 minutes and started CPR and she was brought back after two injections of epinephrine and 20 minutes of CPR. Patient endorses difficulty breathing before the episode. She does have a history of COPD and uses 2 L of oxygen at home and nebulizer. She also states that she had a stroke six months ago and has residual right-sided weakness. Plan Plan Cardiac arrest s/p ROSC after 20 minutes NSTEMI Initial EKG showed sinus rhythm with left axis deviation and left bundle-branch block. Initial laboratory workup was significant for a lactic acid of 8.7, [place] [address], BNP of 3690 and serially up trending troponin of 141, 151, 338, 400s. Troponins trended downwards later Echocardiogram showed EF of 40-45% and pulmonary artery systolic pressure of 30 mmHg. Started on IV Lasix 40 mg daily which was later increased to 40 mg b.i.d.. Strict I&O monitoring. CT head showed atrophy with periventricular leukoencephalopathy but no acute changes. 07/14/2025: Patient had two episodes of chest pain and chest x-ray showing ST depressions in lateral leads. Chest pain resolved with nitro. Started on heparin drip. Consulted on-call greaser helper. They recommend to continue heparin drip for 48 hours Acute hypoxemic respiratory failure secondary to below Acute on chronic CHF exacerbation Sepsis secondary to bilateral pneumonia COPD Pulmonary embolism, ruled out Initial physical exam was consistent with bilateral rhonchi. Procalcitonin is elevated at 17.18, lactic acid improved from 8.7-2.6 Chest x-ray showed bilateral interstitial opacities and small left pleural effusion suspicious for pneumonia versus CHF. CT chest showed 1. Bilateral pulmonary opacities and interlobular septal thickening. Findings are suggestive of pulmonary edema. 2. Small bilateral pleural effusions. 3. Cardiomegaly. Coronary artery calcifications. Currently on antibiotics Zosyn, azithromycin, DuoNebs, Solu-Medrol 62.5 mg Q 8 hours and incentive spirometer. D-dimer is elevated at 11.24. CTA ruled out pulmonary embolism CTA chest shows: Bibasilar consolidations may reflect pneumonia or aspiration. Small bilateral pleural effusions. Metabolic acidosis with respiratory compensation secondary to sepsis Initial ABG showed pH of 7.2 and bicarb of 17, pCO2 42.9. Repeat ABG showed a pH of 7.4 with bicarb of 19.8 and respiratory compensation with pCO2 29.5 Hypertension Hyperlipidemia Hypothyroidism Med rec done. Continue home medication amlodipine, ramipril, metoprolol for hypertension Continue simvastatin, levothyroxine. Code Status: DNR DVT Prophylaxis: Lovenox Analgesia/Sedation: Lines/Tubes: PIV Gi Prophylaxis: Pepcid Nutrition: Heart healthy diet PT: Yes Prognosis: Guarded Disposition: Continue care in PCU. Krunal Momin MD Internal Medicine Resident PGY-2 Date of Service: Jul 15, 2025 Billing Provider: ALEXIS VILLARREAL MD,KRUNAL MOMIN, RES Jul 15, 2025 18:59
[2025-07-15] MEDS ORDERED: docusate sod 100mg capsule PO SCH (20:00)
[2025-07-15] MEDS: piperacillin/tazo 3.375gm/50ml 50 ML IV SCH (21:23)
[2025-07-16] VITALS (12 sets, daily range): BP systolic 126–138; BP diastolic 54–61; PULSE 56–66; RESP 16–24; TEMP 98–98.6; O2SAT 88–96
[2025-07-16 06:08] LABS: MEAN PLATELET VOLUME 9.8 FL (7.4-10.4); RED CELL DISTRIBUTION WIDTH 13.5 % (11.5-14.5)
[2025-07-16 06:31] LABS: CREATININE 1.28 MG/DL (0.40-0.90); PHOSPHORUS 2.8 MG/DL (2.3-4.5); TOTAL CARBON DIOXIDE 29.2 MMOL/L (24-32); eCRCL 25 ML/MIN; eGFR 40 ML/MIN
[2025-07-16] MEDS: MESSAGE TO NURSING IV ONE ×2 (06:35→12:35)
[2025-07-16] MEDS: potassium Cl 20 mEq SR tablet PO PRN (08:55)
[2025-07-16] MEDS ORDERED: magnesium sulf-water 2g/50mL 50 ML IV PRN (15:15)
[2025-07-16] MEDS ORDERED: potassium Cl 20 mEq SR tablet PO PRN ×2 (15:15)
[2025-07-16] MEDS ORDERED: magnesium sulf-water 4G/100mL 100 ML IV PRN (15:15)
[2025-07-16] MEDS ORDERED: potassium Cl 40MEQ/1/2NS 520ml 520 ML IV PRN (15:15)
[2025-07-16] MEDS ORDERED: magnesium Cl slow-release 64mg tablet PO PRN (15:15)
--- NOTE | 2025-07-16 18:45 | DISCHARGE SUMMARY-Residence ---
Discharge Summary Providers to CC Resident Creating Document: KRUNAL HOLLINGSWORTH, RES ~ Discharge Summary Admission Diagnosis: Cardiac Arrest Hospital Course DATE OF ADMISSION: 07/12/2025 DATE OF DISCHARGE: 07/16/2025 Discharge Diagnosis\Comment: Cardiac arrest s/p ROSC after 20 minutes NSTEMI Acute hypoxemic respiratory failure secondary to below Acute on chronic CHF exacerbation Sepsis secondary to bilateral pneumonia Community-acquired pneumonia, covering g positives, g negatives and atypicals COPD Pulmonary embolism, ruled out Metabolic acidosis secondary to sepsis with respiratory compensation Hypertension Hyperlipidemia Hypothyroidism Operations\Procedures: Endotracheal intubation Consultants: Dr. Brooke Guillen, Dr. Warren Complications: None Condition on DC: Stable for transfer Discharge Summary: History of present illness: This is a 85-year-old female with known history of COPD, CHF, recent stroke, breast cancer s/p mastectomy, hypertension, spinal stenosis, hypothyroidism was brought to the ER by EMS after achieving ROSC. Patient was found to be in cardiac arrest at 6:00 a.m. at home and was resuscitated successfully after 20 minutes of CPR. Patient was also intubated and was transferred in the ambulance to the ER of [facility]. Patient was then transferred to ICU with mechanical ventilation. Patient was sedated with propofol and fentanyl. Initial EKG showed sinus rhythm with left axis deviation and left bundle-branch block. Initial laboratory workup was significant for a lactic acid of 8.7, [place] [address], BNP of 3690 and serially up trending troponin of 141, 151, 338. Initial physical exam was consistent with bilateral rhonchi. Chest x-ray showed bilateral interstitial opacities and small left pleural effusion suspicious for pneumonia versus CHF. Echocardiogram showed EF of 40-45% and pulmonary artery systolic pressure of [address] head showed atrophy with periventricular leukoencephalopathy but no acute changes. Patient was started on steroids methylprednisone 40 mg q.6 hours and duo nebs given the history of COPD by the mock up assembler. Subsequently patient improved with white count decreasing to 9000, lactic acid improved to 2.9. Patient endorses that she had slight chest pain when she woke up and later had a syncopal episode after which she does not remember anything. Her son the bedside stated that the EMS arrived in 20 minutes and started CPR and she was brought back after two injections of epinephrine and 20 minutes of CPR. Patient endorses difficulty breathing before the episode. She does have a history of COPD and uses 2 L of oxygen at home and nebulizer. She also states that she had a stroke six months ago and has residual right-sided weakness. Hospital course: Initial EKG showed sinus rhythm with left axis deviation and left bundle-branch block. Initial laboratory workup was significant for a lactic acid of 8.7, [place] [address], BNP of 3690 and serially up trending troponin of 141, 151, 338, 400s. Patient was started on heparin drip as recommended by ruby rails developer for 48 hours. Echocardiogram showed EF of 40-45% and pulmonary artery systolic pressure of 30 mmHg. Started on IV Lasix 40 mg daily which was later increased to 40 mg b.i.d.. Patient diuresed well with Lasix and was on Strict I&O monitoring. CT head showed atrophy with periventricular leukoencephalopathy but no acute changes. The following day, Patient had two episodes of chest pain and chest x-ray showing ST depressions in lateral leads. Chest pain resolved with nitro. Heparin drip was continued. Acute hypoxemic respiratory failure secondary to heart failure exacerbation and pneumonia, COPD. Pulmonary embolism, ruled out. Initial physical exam was consistent with bilateral rhonchi. Procalcitonin is elevated at 17.18, lactic acid improved from 8.7-2.6 Chest x- ray showed bilateral interstitial opacities and small left pleural effusion suspicious for pneumonia versus CHF. CT chest showed 1. Bilateral pulmonary opacities and interlobular septal thickening. Findings are suggestive of pulmonary edema.Small bilateral pleural effusions. Cardiomegaly. Coronary artery calcifications. The patient was treated with antibiotics Zosyn, azithromycin, DuoNebs, Solu-Medrol 62.5 mg Q 8 hours and incentive spirometer. D-dimer is elevated at 11.24. CTA ruled out pulmonary embolism. CTA chest shows: Bibasilar consolidations may reflect pneumonia or aspiration. Small bilateral pleural effusions. Metabolic acidosis with respiratory compensation secondary to sepsis. Initial ABG showed pH of 7.2 and bicarb of 17, pCO2 42.9. Repeat ABG showed a pH of 7.4 with bicarb of 19.8 and respiratory compensation with pCO2 29.5. Other comorbidities include Hypertension, Hyperlipidemia, Hypothyroidism. Continued home medication amlodipine, ramipril, metoprolol for hypertension. Continued simvastatin, levothyroxine. Patient was hemodynamically stable at the time of discharge and was transferred to [facility] with heparin drip, Zosyn, Zithromax and steroids. Physical exam at discharge: General: Awake and Alert, no acute distress. Currently on 4 L of oxygen through nasal cannula HEENT: Conjunctiva pink, Sclera clear, Mucus Membranes moist Neck: Supple without masses and tenderness. Resp: Bilateral crepitations on auscultation Heart: Regular rate and rhythm, normal S1 and S2, S3 gallop heard, no murmur or gallop, muffled heart sounds. Abdomen: Soft and non tender no organomegaly. Normal bowel sounds x4 quadrant normoactive. No guarding or rigidity. Extremities: Normal ROM, no swelling, nontender. No cyanosis,clubbing or edema. HEAT SEAL OPERATOR: No gross motor or sensory abnormalities. Skin: Warm and Dry. Vital Signs Date Time Temp Pulse Resp B/P (MAP) Pulse Ox O2 Delivery O2 Flow Rate FiO2 07/16/25 14:36 56 20 Nasal Cannula 3.0 07/16/25 14:29 92 32 07/16/25 11:00 98.6 126/55 (78) Laboratory Tests Test 07/14/25 19:28 07/14/25 21:22 07/14/25 21:38 07/14/25 23:07 APTT (Heparin Protocol) 58 SECONDS Coagulation Comments Blood Gas Specimen Type Arterial Arterial Blood Gas Puncture Site Lr Lr O2 Saturation 89.3 % 90.6 % Arterial Blood pH (Temp corrected) 7.242 7.384 Arterial Blood pCO2 (Temp correct) 56.8 mmHg 41.4 mmHg Arterial Blood pO2 (Temp corrected) 61.8 mmHg 54.6 mmHg Arterial Blood PO2/FiO2 Ratio 1.05 mmHg/% 1.20 mmHg/% Arterial Blood HCO3 24.0 mmol/L 24.5 mmol/L Arterial Blood Base Excess -4.4 mmol/L -1.0 mmol/L Arterial Blood Oxyhemoglobin 88.6 % 89.8 % Arterial Blood Carboxyhemoglobin 0.8 % 0.6 % Arterial Blood Methemoglobin 0.0 % 0.3 % Arterial Blood Deoxyhemoglobin 10.6 % 9.3 % Arjun Test Modified Modified Blood Gas Hemoglobin 15.3 G/dl 14.1 G/dl Blood Gas Temperature 36.7 35.6 Blood Gas Liter Flow 14 L/min Blood Gas Modality Mask - simple Mask - bipap FiO2 60.0 mmHg/% 50.0 mmHg/% Blood Gas Critical Value Called To venkata Reynoso rn Sodium Level 144 MMOL/L Potassium Level 3.9 MMOL/L Chloride Level 105 MMOL/L Carbon Dioxide Level 26.5 MMOL/L Anion Gap 13 Blood Urea Nitrogen 35 MG/DL Creatinine 1.94 MG/DL Estimated GFR/1.73 m2 25 ML/MIN BUN/Creatinine Ratio 18.0 Glucose Level 224 MG/DL Lactic Acid Level 3.3 MMOL/L Calcium Level 8.7 MG/DL Magnesium Level 2.3 MG/DL Total Bilirubin 0.5 MG/DL Aspartate Amino Transf (AST/SGOT) 36 U/L Alanine Aminotransferase (ALT/SGPT) 57 U/L Alkaline Phosphatase 90 IU/L Troponin I High Sensitivity 304 ng/L Troponin I High Sens Percent Delta 36 % Troponin I Hi Sens Absolute Change -172 ng/L Total Protein 7.3 G/DL Albumin 3.1 G/DL Globulin 4.2 G/DL Albumin/Globulin Ratio 0.7 Chemistry Comments Test 07/14/25 23:18 07/15/25 02:18 07/15/25 09:54 07/15/25 11:40 Lactic Acid Level 2.4 MMOL/L 1.5 MMOL/L White Blood Count 12.3 X10'3 Red Blood Count 4.51 X10'6 Hemoglobin 14.0 g/dl Hematocrit 41.6 % Mean Corpuscular Volume 92.2 FL Mean Corpuscular Hemoglobin 31.0 PG Mean Corpuscular Hemoglobin Concent 33.6 g/dL Red Cell Distribution Width 14.1 % Platelet Count 208 X10'3 Mean Platelet Volume 9.2 FL Neutrophils (%) (Auto) 92.2 % Lymphocytes (%) (Auto) 2.2 % Monocytes (%) (Auto) 5.5 % Eosinophils (%) (Auto) 0 % Basophils (%) (Auto) 0.1 % Neutrophils # (Auto) 11.4 X10'3 Lymphocytes # (Auto) 0.3 X10'3 Monocytes # (Auto) 0.7 X10'3 Eosinophils # (Auto) 0.0 X10'3 Basophils # (Auto) 0.0 X10'3 CBC Comment APTT (Heparin Protocol) 44 SECONDS 112 SECONDS Coagulation Comments Sodium Level 142 MMOL/L Potassium Level 3.8 MMOL/L Chloride Level 106 MMOL/L Carbon Dioxide Level 26.7 MMOL/L Anion Gap 9 Blood Urea Nitrogen 35 MG/DL Creatinine 1.76 MG/DL Estimated GFR/1.73 m2 27 ML/MIN BUN/Creatinine Ratio 19.9 Glucose Level 207 MG/DL Calcium Level 8.3 MG/DL Phosphorus Level 3.3 MG/DL Magnesium Level 2.2 MG/DL Albumin 2.8 G/DL Procalcitonin 8.58 NG/ML Chemistry Comments Blood Gas Specimen Type Arterial Blood Gas Puncture Site Lr O2 Saturation 94.2 % Arterial Blood pH (Temp corrected) 7.454 Arterial Blood pCO2 (Temp correct) 33.3 mmHg Arterial Blood pO2 (Temp corrected) 65.3 mmHg Arterial Blood PO2/FiO2 Ratio 1.36 mmHg/% Arterial Blood HCO3 23.0 mmol/L Arterial Blood Base Excess -0.4 mmol/L Arterial Blood Oxyhemoglobin 93.3 % Arterial Blood Carboxyhemoglobin 0.7 % Arterial Blood Methemoglobin 0.3 % Arterial Blood Deoxyhemoglobin 5.7 % Arjun Test Positive Blood Gas Hemoglobin 14.4 G/dl Blood Gas Temperature 36.4 Blood Gas Set Respiration Rate 12 b/min Blood Gas Modality Mask - bipap FiO2 50.0 mmHg/% Test 07/15/25 15:00 07/15/25 21:26 07/16/25 05:21 07/16/25 11:31 APTT (Heparin Protocol) 53 SECONDS 39 SECONDS 57 SECONDS 74 SECONDS Coagulation Comments White Blood Count 9.3 X10'3 Red Blood Count 4.61 X10'6 Hemoglobin 14.1 g/dl Hematocrit 42.3 % Mean Corpuscular Volume 91.8 FL Mean Corpuscular Hemoglobin 30.7 PG Mean Corpuscular Hemoglobin Concent 33.4 g/dL Red Cell Distribution Width 13.5 % Platelet Count 218 X10'3 Mean Platelet Volume 9.8 FL Neutrophils (%) (Auto) 89.7 % Lymphocytes (%) (Auto) 4.5 % Monocytes (%) (Auto) 5.4 % Eosinophils (%) (Auto) 0.1 % Basophils (%) (Auto) 0.3 % Neutrophils # (Auto) 8.3 X10'3 Lymphocytes # (Auto) 0.4 X10'3 Monocytes # (Auto) 0.5 X10'3 Eosinophils # (Auto) 0.0 X10'3 Basophils # (Auto) 0.0 X10'3 CBC Comment Sodium Level 146 MMOL/L Potassium Level 3.2 MMOL/L Chloride Level 104 MMOL/L Carbon Dioxide Level 29.2 MMOL/L Anion Gap 13 Blood Urea Nitrogen 31 MG/DL Creatinine 1.28 MG/DL Estimated GFR/1.73 m2 40 ML/MIN BUN/Creatinine Ratio 24.2 Glucose Level 167 MG/DL Calcium Level 8.0 MG/DL Phosphorus Level 2.8 MG/DL Magnesium Level 2.3 MG/DL Albumin 2.5 G/DL Procalcitonin 3.58 NG/ML Chemistry Comments Imaging: Chest x-ray following intubation: 1. The tip of the enteric tube terminates at the level of the distal esophagus. Recommend advancement. 2. Endotracheal tube terminates 2.3 cm above the gagandeep. 3. Diffuse bilateral interstitial and alveolar opacities which may reflect pneumonia. 4. Cardiomegaly. CT head: 1. Atrophy with periventricular leukoencephalopathy. 2. No acute intracranial pathology Echocardiogram: Normal LV size with mild to moderately reduced function. Mild concentric hypertrophy. Overall LVEF is 40-45%. Right ventricle is moderately dilated with reduced systolic function. Estimated PA systolic pressure is 30 mmHg. Left atrium is moderately dilated. Right atrium appears to be severely dilated. Aortic valve is grossly normal in structure. Mitral valve is grossly normal in structure. TV appears structurally normal with mild regurgitation. Small/Trivial pericardial effusion is loculated near right atrium. No evidence of hemodynamic compromise. Repeat chest x-ray: Slightly increased small left pleural effusion. CT chest: 1. Bilateral pulmonary opacities and interlobular septal thickening. Findings are suggestive of pulmonary edema. 2. Small bilateral pleural effusions. 3. Cardiomegaly. Coronary artery calcifications. 4. T10 compression fracture. CTA chest: 1. No pulmonary embolism. 2. Bibasilar consolidations may reflect pneumonia or aspiration. 3. Small bilateral pleural effusions. Repeat chest x-ray: Low lung volumes, which cause crowding of the bronchovascular markings. Interstitial thickening with alveolar opacity in the left lung base with increased interstitial markings in the lxub-[id number]-rfgf-right mid to lower lung zones. Correlate for volume overload and/or superimposed pneumonia Discharge recommendation: Follow up with your ruby rails developer and PCP in a week. Stop heparin drip on 07/17/2025. Continue antibiotics for four more days, stop date 07/20/2025. Wean off steroids slowly from Solu-Medrol q.6 to Solu-Medrol q.2h and then stop. Wean off oxygen slowly as tolerated. Return to the ER if you have recurrent chest pain or shortness of breath *Problems/Diagnosis: (1) Cardiac arrest Status: Acute Total Time Spent on D/C: > 30 Minutes Date of Service: Jul 16, 2025 Billing Provider: ALEXIS VILLARREAL MD, DEEPIKA BANDI, RES Jul 16, 2025 18:45
== END 2025-07-16 16:15 | DRG 871 ==
LOC: ER 06:59 → EDBD 06:59 → ED HOLD 08:49 → CICU 2S 10:15 → SUR 3N 07-13 13:28 → PCU 3S 07-14 15:10
PROVIDERS: ADMIT Internal Medicine Critical Care Medicine; ATTEND Internal Medicine Critical Care Medicine
PROC: 5A1935Z Respiratory Ventilation, Less than 24 Consecutive Hours (ICD-10-PCS; principal; 2025-07-12)
PROC: 0BH17EZ Insertion of Endotracheal Airway into Trachea, Via Natural or Artificial Opening (ICD-10-PCS; 2025-07-12)
PROC: 5A12012 Performance of Cardiac Output, Single, Manual (ICD-10-PCS; 2025-07-12)
PROC: B32T1ZZ Computerized Tomography (CT Scan) of Left Pulmonary Artery using Low Osmolar Contrast (ICD-10-PCS; 2025-07-13)
PROC: B3201ZZ Computerized Tomography (CT Scan) of Thoracic Aorta using Low Osmolar Contrast (ICD-10-PCS; 2025-07-13)
PROC: B32S1ZZ Computerized Tomography (CT Scan) of Right Pulmonary Artery using Low Osmolar Contrast (ICD-10-PCS; 2025-07-13)
PROC: 5A09357 Assistance with Respiratory Ventilation, Less than 24 Consecutive Hours, Continuous Positive Airway Pressure (ICD-10-PCS; 2025-07-14)
DX: A41.9 Sepsis, unspecified organism (principal); I21.4 Non-ST elevation (NSTEMI) myocardial infarction; I46.9 Cardiac arrest, cause unspecified; J96.01 Acute respiratory failure with hypoxia; J18.9 Pneumonia, unspecified organism; I50.23 Acute on chronic systolic (congestive) heart failure; J15.69 Pneumonia due to other Gram-negative bacteria; J15.8 Pneumonia due to other specified bacteria; J44.0 Chronic obstructive pulmonary disease with (acute) lower respiratory infection; Z66 Do not resuscitate; I48.91 Unspecified atrial fibrillation; E78.5 Hyperlipidemia, unspecified; E03.9 Hypothyroidism, unspecified; I11.0 Hypertensive heart disease with heart failure; Z79.82 Long term (current) use of aspirin; Z79.899 Other long term (current) drug therapy; Z86.73 Personal history of transient ischemic attack (TIA), and cerebral infarction without residual deficits; Z99.81 Dependence on supplemental oxygen; Z85.3 Personal history of malignant neoplasm of breast
CPT/HCPCS: 31500; 36415; 36600; 70450; 71045; 71250; 71275; 80048; 80053; 80061; 81001; 82803; 82948; 83036; 83605; 83735; 83880; 84100; 84132; 84145; 84478; 84484; 85018; 85025; 85379; 85610; 85730; 87040; 87070; 87081; 87088; 93005; 93308; 94002; 94003; 94640; 94660; 94760; 94799; 99291; A4615; A6213; C1758; G0378; J1644; J1650; J1938; J2270; J2543; J2704; J2919; J3010; J3490; J7030; J7040; J7120; Q9967